=== PATIENT | female | born 1985 | race African-American/Black ===

== ENCOUNTER 2017-01-29 12:13 | Outpatient (CLI) | payer MEDICAID ==
[~2017-01-29] VITALS: Ht 160 cm; Wt 79.3 kg
[2017-01-29 12:40] VITALS: Ht 160 cm; Wt 79.3 kg
[2017-01-29 12:41] VITALS: BP 151/69; PULSE 75; RESP 19
[2017-01-29] MEDS ORDERED: LACTATED RINGER'S 250 ML IV ONE (13:00)
--- NOTE | 2017-01-29 13:30 | RADRPT ---
AMENDMENT: 01/29/2017 1:55:56 PM Olga Melgar M.d There is a complete placenta previa. Findings were discussed with the patient's nurse Mando on 01/29/2017 1:55:29 PM. PROCEDURE: OB ultrasound for biophysical profile CLINICAL INDICATION: Abdominal pain TECHNIQUE: Multiple sonographic images of the pelvis were obtained. Transabdominal views of the g ravid uterus are available for review. The images were reviewed on a PACS workstation. COMPARISON: None FINDINGS: breathing movement = 2/2 tone = 2/2 motion = 2/2 MYNOR = 2/2 MYNOR = 11.8 cm Single live intrauterine with cardiac activity of 161 bpm. position is cephal ic. The placenta is posterior. IMPRESSION: 1. Single live intrauterine gestation. 2. Biophysical profile = 8/8. 3. MYNOR = 11.8 cm. RPTAT: HH .Olga Melgar MD, Date Time Electronically viewed and signed by .Olga Melgar MD, MD on 01/29/2017 13:55 .G/
--- NOTE | 2017-01-29 13:32 | RADRPT ---
AMENDMENT: 01/29/2017 1:56:18 PM Olga Melgar M.d There is a complete placenta previa. Findings were discussed with the patient's nurse Mando on 01/29/2017 1:55:29 PM. PROCEDURE: US OB. CLINICAL INDICATION: Size and dates TECHNIQUE: Multiple sonographic images of the pelvis were obtained. Transabdominal imaging only w as performed. The images were reviewed on a PACS workstation. COMPARISON: No prior studies are available for comparison. FINDINGS: There is a single live intrauterine gestation. Cardiac activity is present with 131 beats per minut e. position is cephalic. Measurements were made in order to determine age. The results are as follows: BPD = 8.83 cm HC = 32.76 cm AC = 32.28 cm FL = 6.97 cm. Estimated gestational age of approximately 36 weeks 1 day. The estimated date of delivery is 02/25/2017. The EFW = 2858 g, 81.6 %ile. The placenta is posterior. There is no evidence for an abruption or placenta previa. There are no adnexal masses. IMPRESSION: 1. Single live intrauterine gestation of approximately 36 weeks 1 day, by ultrasound criteria. 2. The estimated date of delivery is 02/25/2017. 3. The estimated weight is 2858 g, 81.6 %ile. RPTAT: HH .Olga Melgar MD, Date Time Electronically viewed and signed by .Olga Melgar MD, MD on 01/29/2017 13:56 .G/
[2017-01-29] MEDS ORDERED: TERBUTALINE 1 MG/ML INJ SC ONE (14:00)
[2017-01-29] MEDS ORDERED: TERBUTALINE 1 ML ONE (14:02)
[2017-01-29] MEDS ORDERED: LACTATED RINGER'S 1,000 ML IV SCH (14:30)
--- NOTE | 2017-01-29 16:41 | PN ---
Triage Information Date/Time Reason for visit: Uterine contractions Weeks of Gestation 34+ /Para 4/3 Diabetes: none Hypertention: none Objective Vital Signs Date Time Temp Pulse Resp B/P Pulse Ox O2 Delivery O2 Flow Rate FiO2 01/29/17 12:41 98.3 75 19 151/69 99 Room Air Heart Rate: 140's Contractions: None Results/Medications Medications Current Medications Lactated Ringer's (Lr) 1,000 ml @ 125 mls/hr Q8H IV Last administered on t 15:32; Admin Dose 125 MLS/HR; Start 01/29/17 at 14:30 Disposition: Discharge Assessment/Plan Complete previa Not casa anymore comfortable NO VB +ZFM NO CTXs NO LOF NST reassring Rashid No CTXs Pelvic Deffered BPP 12/18 --->She is discharged with precautions MOODY CONDE M.D. Jan 29, 2017 16:41
--- NOTE | 2017-01-29 16:58 | TRIAGE ---
OB Triage Datetime Report Generated by CPN: 01/29/2017 16:57 Datetime: 01/29/2017 15:00 Maternal Assessment Level of Consciousness: Fully Conscious DTR's/Clonus: DTRs 1+ Headache: Denies Blurred Vision: No Respiratory Effort: Unlabored Breath Sounds, Left: Clear and Equal Breath Sounds, Right: Clear and Equal Nausea/Vomiting: Denies RUQ Epigastric Pain: Denies Facial Edema: None Labor Evaluation Frequency: x5 Monitor Mode: External Duration (sec)2399: 30-50 Quality: Mild Pattern: Normal: <= 5 Contractions in 10 Minutes Resting Tone Rico: Relaxed Heart Rate FHR Baseline Rate: 135 Monitor Mode: External US Variability: Moderate 6-25 bpm Accelerations: 15X15 Decelerations: None Category: Category I Pain Assessment Pain Scale: 3 Pain Presence: Intermittent Pain Type: Cramping Pain Location: Back Pain Goal: 3 Pain Assessment Comments: PT STATES FEELING MUCH BETTER AND SHES STILL REFUSING TERBUTALIN AT THIS TIME. Vaginal Exam Membrane Status: Intact Datetime: 01/29/2017 14:00 Stage of : OB Triage Maternal Assessment Level of Consciousness: Fully Conscious DTR's/Clonus: DTRs 1+ Headache: Denies Breath Sounds, Left: Clear and Equal Breath Sounds, Right: Clear and Equal Nausea/Vomiting: Denies RUQ Epigastric Pain: Denies Labor Evaluation Frequency: IRREGULAR Monitor Mode: External Duration (sec)2399: 40-70 Quality: Mild Pattern: Normal: <= 5 Contractions in 10 Minutes Resting Tone Rico: Relaxed Heart Rate FHR Baseline Rate: 135 Monitor Mode: External US Variability: Moderate 6-25 bpm Accelerations: 15X15 Decelerations: None Category: Category I Pain Assessment Pain Scale: 3 Pain Presence: Intermittent Pain Type: Cramping Pain Location: Back Pain Goal: 7 Vaginal Exam Membrane Status: Intact Datetime: 01/29/2017 13:08 Stage of : OB Triage Maternal Assessment Level of Consciousness: Fully Conscious DTR's/Clonus: DTRs 1+ Headache: Denies Blurred Vision: No Respiratory Effort: Unlabored Breath Sounds, Left: Clear and Equal Breath Sounds, Right: Clear and Equal Nausea/Vomiting: Denies RUQ Epigastric Pain: Denies Facial Edema: None Labor Evaluation Frequency: IRREGULAR Monitor Mode: External Duration (sec)2399: 40-70 Quality: Mild Pattern: Normal: <= 5 Contractions in 10 Minutes Resting Tone Rico: Relaxed Heart Rate FHR Baseline Rate: 135 Monitor Mode: External US Variability: Moderate 6-25 bpm Accelerations: 15X15 Decelerations: None Category: Category I Vaginal Exam Membrane Status: Intact Datetime: 01/29/2017 12:39 Assessment Type: Triage Maternal Assessment Level of Consciousness: Fully Conscious DTR's/Clonus: DTRs 2+; No Clonus Headache: Denies Blurred Vision: No Respiratory Effort: Unlabored; Regular Rhythm; Equal Expansion Breath Sounds, Left: Clear and Equal Breath Sounds, Right: Clear and Equal Nausea/Vomiting: Denies RUQ Epigastric Pain: Denies Lower Extremities Edema: None Degree: None Upper Extremities Edema: None Degree: None Facial Edema: None Fall Risk Assessment History of Falling: (0) No Secondary Diagnosis: (0) No Ambulatory Aid: (0) Bedrest/Nurse Assist IV Therapy: (0) No Gait: (0) Normal/Bedrest/Immobile Mental Status: (0) Oriented to Own Ability Fall Score: 0 Fall Risk Score Definition: No Risk: No action required Datetime: 01/29/2017 12:34 Contraction Comments: TOCO CHANGED Datetime: 01/29/2017 12:18 EGA: 34.6 Datetime: 01/29/2017 12:10 Time of Arrival: 01/29/2017 12:10 Arrived By: Ambulance Arrived From: Home Chief Complaint: PT CAME IN C/O BACK PAIN AND ABD PAIN X 1 AND DENIES ANY BLEEDING AT THIS TIME, S TATES FEELING BABY MOVING AT THIS TIME Movement: Present Contractions: Denies/Absent Rupture of Membranes: Denies Vaginal Discharge: Denies Recent Sexual Intercouse: Denies Abdominal Trauma: Not Applicable Patient Complaints: Cramping; Back Pain Additional Patient Complaints: NONE Time Provider Notified: 01/29/2017 12:30 Provider Notified: AMAYA Initial Plan: MONITOR, PLACENTA LOCATION, IV FLUIDS, EFW
== END 2017-01-29 16:44 | disposition home or self-care (01) ==
LOC: OBT 12:13 → L-D 12:17 → OBT 16:44
PROVIDERS: ATTEND Obstetrics & Gynecology
DX: O26.893 Other specified pregnancy related conditions, third trimester (principal); Z3A.34 34 weeks gestation of pregnancy; R10.9 Unspecified abdominal pain
CPT/HCPCS: 36415; 76815; 76818; 96360; 96361; G0463; J3105; J7120

== ENCOUNTER 2017-02-15 05:43 | Inpatient (IN) | payer MEDICAID ==
[2017-02-13 10:24] LABS: BASOPHILS % 0.2 % (0.0-2.0); EOSINOPHILS % 0.4 % (0.0-7.0); HEMATOCRIT 27.7 % (37.0-47.0); HEMOGLOBIN 8.7 g/dl (12.0-16.0); LYMPHOCYTES # 1.7 10^3/ul (0.8-2.9); LYMPHOCYTES % 17.5 % (15.0-51.0); MEAN CORPUSCULAR HEMOGLOBIN 25.7 pg (29.0-33.0); MEAN CORPUSCULAR HGB CONC 31.4 g/dl (32.0-37.0); MEAN CORPUSCULAR VOLUME 81.7 fl (82.0-101.0); MONOCYTE # 0.8 10^3/ul (0.3-0.9); MONOCYTES % 8.5 % (0.0-11.0); NEUTROPHIL # 6.9 10^3/ul (1.6-7.5); NEUTROPHILS % 72.2 % (39.0-77.0); NUCLEATED RED BLOOD CELLS% 0.2 /100WBC (0.0-0.0); PLATELET COUNT 165 10^3/UL (140-415); RED BLOOD COUNT 3.39 10^6/ul (4.20-5.40); RED CELL DISTRIBUTION WIDTH 14.4 % (11.5-14.5); WHITE BLOOD COUNT 9.5 10^3/ul (4.8-10.8)
[2017-02-13 10:32] LABS: ADD UMIC YES; UR ASCORBIC ACID NEGATIVE (NEGATIVE); UR BILIRUBIN (Dip) NEGATIVE (NEGATIVE); UR BLOOD (Dip) NEGATIVE (NEGATIVE); UR CLARITY SLIGHTLY CLOUDY (CLEAR); UR COLOR YELLOW (YELLOW); UR GLUCOSE (Dip) NEGATIVE (NEGATIVE); UR KETONES (Dip) NEGATIVE (NEGATIVE); UR LEUKOCYTE ESTERASE (Dip) 2+ Leu/ul (NEGATIVE); UR NITRITE (Dip) NEGATIVE (NEGATIVE); UR RBC 1 /HPF (0-5); UR SPECIFIC GRAVITY (Dip) 1.012 (1.003-1.030); UR SQUAMOUS EPITHELIAL CELL FEW /HPF (FEW); UR TOTAL PROTEIN (Dip) NEGATIVE (NEGATIVE); UR UROBILINOGEN (Dip) 2+ mg/dL (NEGATIVE)
[2017-02-13 10:39] LABS: INR 0.99; PROTIME 13.1 Sec (12.2-14.2)
[2017-02-13 10:47] LABS: ALBUMIN 3.8 g/dl (3.3-4.9); ALBUMIN/GLOBULIN RATIO 1.05; BILIRUBIN,INDIRECT 0.7 mg/dl (0-1.1); BILIRUBIN,TOTAL 0.7 mg/dl (0.2-1.3); CALCIUM 9.2 mg/dl (8.4-10.2); CREATININE 0.71 mg/dl (0.44-1.00); POTASSIUM 3.9 mmol/L (3.5-5.1); TOTAL PROTEIN 7.4 g/dl (6.1-8.1)
--- NOTE | 2017-02-14 22:41 | PREOPHP ---
DATE OF ADMISSION: 02/15/2017 The patient is to be admitted to labor and delivery tomorrow, 02/15/2017 for a section for placenta previa and a tubal ligation for multiparity. HISTORY OF PRESENT ILLNESS: This is a 31-year-old female, 4, para 3, whose EDC confirmed by ultrasound by early and serial studies by the [facility] group. Would have been 03/06/2017. She was found to have a placenta previa and was counseled to have this delivery by section at 37 weeks gestation which will be on the day of admission. She had been followed by Dr. Lex Noriega in of the [facility] group. The patient also has requested sterilization at the time of section. Signed the appropriate surgical informed consent. Both procedures were explained to the p atient in detail at the office. The alternatives, benefits, risks, and possible complications as we ll as 1% failure rate of the tubal ligation. She was allowed to ask questions and all her questions were answered to her satisfaction and she signed the appropriate surgical informed consents. PAST MEDICAL HISTORY: The patient denies any medical problems including diabetes, hypertension, shant al disease, liver disease, thyroid disease, and neurological problems. ALLERGIES: SHE HAS NO KNOWN ALLERGIES. MEDICATIONS: Has been using only vitamins during her care. REVIEW OF SYSTEMS: A 12-point review of systems is noncontributory. FAMILY HISTORY: Noncontributory. PHYSICAL EXAMINATION: GENERAL: Well-developed and nourished, in no distress, alert and oriented x3. Height is 5 feet 3 i nches and weight is 174 pounds. VITAL SIGNS: Showed temperature to be 98, blood pressure 126/68, respirations 16 per minute, the pu lse is 80/minute, regular. HEENT: Within normal limits. Pupils are PERRLA. NECK: Supple. The thyroid is not palpable. There is no lymphadenopathy. BREASTS: Show no masses or lumps. LUNGS: Clear to percussion and auscultation. HEART: Normal sinus rhythm without a murmur. ABDOMEN: Soft. Uterus enlarged up to 34 cm above the pubic bone, single baby, longitudinal lie, ce phalic presentation with a heart rate of category 1. PELVIC: Deferred. EXTREMITIES: Examination of lower extremities within normal limits. NEUROLOGIC: Also normal. IMPRESSION: 1. At 37 weeks gestation. 2. Placenta previa. The patient desires sterilization. PLAN: She is to be admitted and delivered by tomorrow, 02/15/2017. Dictated By: EVELYN PÉREZ/AYAZ Conf#: [id number] DID#: [id number]
[~2017-02-15] VITALS: Ht 160 cm; Wt 76.3 kg
[2017-02-15 05:58] VITALS: BP 116/74; PULSE 81; RESP 18
[2017-02-15 06:00] VITALS: Ht 160 cm; Wt 76.3 kg
[2017-02-15] MEDS ORDERED: LACTATED RINGER'S 1,000 ML IV SCH (06:42)
[2017-02-15 06:56] LABS: BASOPHILS % 0.2 % (0.0-2.0); EOSINOPHILS # 0.1 10^3/ul (0.0-0.5); EOSINOPHILS % 0.7 % (0.0-7.0); HEMATOCRIT 28.1 % (37.0-47.0); HEMOGLOBIN 8.8 g/dl (12.0-16.0); LYMPHOCYTES # 1.8 10^3/ul (0.8-2.9); LYMPHOCYTES % 20.6 % (15.0-51.0); MEAN CORPUSCULAR HEMOGLOBIN 25.3 pg (29.0-33.0); MEAN CORPUSCULAR HGB CONC 31.3 g/dl (32.0-37.0); MEAN CORPUSCULAR VOLUME 80.7 fl (82.0-101.0); MEAN PLATELET VOLUME 11.6 fl (7.4-10.4); MONOCYTES % 11.7 % (0.0-11.0); NEUTROPHIL # 5.8 10^3/ul (1.6-7.5); NEUTROPHILS % 65.9 % (39.0-77.0); PLATELET COUNT 153 10^3/UL (140-415); RED BLOOD COUNT 3.48 10^6/ul (4.20-5.40); RED CELL DISTRIBUTION WIDTH 14.7 % (11.5-14.5); WHITE BLOOD COUNT 8.8 10^3/ul (4.8-10.8)
[2017-02-15] MEDS ORDERED: METHYLERGONOVINE 0.2 MG INJ IM PRN ×2 (07:00→09:00)
[2017-02-15] MEDS ORDERED: CEFAZOLIN 2 GM/50 ML (PMX) 50 ML IV SCH (07:00)
[2017-02-15] MEDS ORDERED: OXYTOCIN 30 UNITS/LR 500 ML IV SCH ×2 (07:00→07:30)
[2017-02-15] MEDS ORDERED: CARBOPROST 250 MCG INJ IM PRN ×2 (07:00→09:00)
[2017-02-15] MEDS ORDERED: MISOPROSTOL 200 MCG TAB PR PRN ×2 (07:00→09:00)
[2017-02-15] MEDS ORDERED: OXYTOCIN 30 UNITS/LR 500 ML IV PRN ×2 (07:00→09:00)
[2017-02-15 07:06] LABS: INR 1.05; PROTIME 13.7 Sec (12.2-14.2); PT RATIO 1.1
[2017-02-15 07:07] LABS: PARTIAL THROMBOPLASTIN TIME 28.3 Sec (25.0-35.0)
[2017-02-15] MEDS ORDERED: morphine SULFATE/PF (10 MG/10 ML) INJ ONE (07:43)
[2017-02-15] MEDS ORDERED: FENTAnyl 50 MCG/ML VIAL ONE (07:44)
[2017-02-15] MEDS: CEFAZOLIN 2 GM/50 ML (PMX) 50 ML IV SCH ×2 (07:50→17:05)
[2017-02-15] MEDS ORDERED: PHENYLephrine (100 MCG/ML) 5ML SYG ONE (07:50)
[2017-02-15] MEDS ORDERED: DEXAMETHASONE 4 MG/ML 1 ML INJ ONE (07:51)
[2017-02-15] MEDS ORDERED: ONDANSETRON 4 MG INJ ONE (08:16)
[2017-02-15] MEDS ORDERED: morphine 2 MG INJ IV PRN ×2 (08:30→11:00)
[2017-02-15] MEDS ORDERED: morphine 4 MG/ML VIAL IV PRN ×2 (08:30→11:00)
[2017-02-15] MEDS ORDERED: ONDANSETRON 4 MG INJ IV PRN ×2 (08:30→11:00)
[2017-02-15] MEDS ORDERED: DIPHENHYDRAMINE 50 MG INJ IV PRN ×2 (08:30→11:00)
[2017-02-15] MEDS ORDERED: KETOROLAC 30 MG INJ IV PRN ×2 (08:30→11:00)
[2017-02-15] MEDS ORDERED: NALOXONE (0.4 MG/ML) INJ IV PRN ×2 (08:30→11:00)
[2017-02-15] MEDS ORDERED: ZOLPIDEM 5 MG TAB PO PRN ×2 (08:30→11:00)
[2017-02-15] MEDS: LACTATED RINGER'S 1,000 ML IV SCH ×3 (08:39→21:00)
--- NOTE | 2017-02-15 08:47 | SIPON ---
Date/Time of Note Date/Time of Note See dictation note DATE: 02/15/17 TIME: 08:44 Operative Report Preoperative Diagnosis 37weeks gestation.Placenta previa.Multiparity. Postoperative Diagnosis Same Operation/Procedure Performed Primary .BTL. Surgeon Dr. Evelyn Shaikh office manager executive assistant Dr. Jonathan MD Anesthesia: spinal Estimated blood loss: other Transfusion Required none Specimen Portion of fallopian tubes. Grafts/Implants none Complications none EVELYN SHAIKH MD Feb 15, 2017 08:47
[2017-02-15] MEDS: SENNA/DOCUSATE NA (8.6MG/50MG) TAB PO SCH ×2 (09:00→20:59)
[2017-02-15] MEDS ORDERED: OXYCODONE/ACETAMINOPHEN (5/325) TAB PO PRN (09:00)
[2017-02-15] MEDS ORDERED: LANOLIN 7 GM TUBE TOP PRN (09:00)
[2017-02-15] MEDS ORDERED: KETOROLAC 30 MG INJ ONE (09:06)
[2017-02-15] MEDS ORDERED: KETOROLAC 30 MG INJ IV STA (09:21)
[2017-02-15] MEDS ORDERED: DIPHENHYDRAMINE 50 MG INJ ONE (10:45)
[2017-02-15] MEDS ORDERED: DIPHENHYDRAMINE 50 MG INJ IV ONE (10:51)
[2017-02-15 12:00] VITALS: BP 134/80; PULSE 69; RESP 18
[2017-02-15] MEDS ORDERED: IBUPROFEN 800 MG TAB PO SCH (14:00)
--- NOTE | 2017-02-15 14:28 | OPR ---
DATE OF OPERATION: PREOPERATIVE DIAGNOSES: 1. 37 weeks gestation. 2. Placenta previa 3. Multiparity. POSTOPERATIVE DIAGNOSES: 1. 37 weeks gestation. 2. Placenta previa 3. Multiparity. OPERATION PERFORMED: Primary low segment transverse section, baby was in double footling breech and bilateral tubal ligation. COMPLICATIONS: None. ESTIMATED BLOOD LOSS: 600 mL. SURGEON: Evelyn Shaikh MD. PARTY HOST/HOSTESS: ANESTHESIA: Spinal. ANESTHESIOLOGIST: Dr. Larson. SPECIMENS: Portions of fallopian tubes were sent to pathology. PROCEDURE AND FINDINGS: With the patient under spinal anesthesia, she was laid on the table in the dorsal recumbent position, tilted to the left side. She had a Lemus catheter draining her bladder. Her abdomen, upper thighs and perineum were prepped with ChloraPrep and after 3 minutes draped in the usual sterile fashion for this procedure. A Pfannenstiel incision was done and carried through all layers of abdominal wall with ease. Once in the abdomen, the uterine segment was opened transversely high and a living male child was delivered from double footling breech. Amniotic fluid was clear. The baby was handed to respiratory team cotton expert who found him to have scores 8 and 9. Sample cord blood was obtained. The placenta was removed. The uterine cavity cleaned with a clean moist laparotomy pad. Incision in the uterus was closed with a continuous running stitch of 0 PDS. Good hemostasis was observed. The tubes and ovaries were found to be normal. Then, we proceeded with tubal ligation was started on the left side, picking the tube in its midportion with a [place] clamp and tying it on its base twice with 0 plain catgut. The portion of tube was cut and sent to pathology. Same was done on the contralateral side. The first count of sponges was correct at this point. The pelvis was performed washed with warm saline and was suctioned out. Then, the abdomen was closed in layers starting with the peritoneum with continuous stitch of double 0 chromic catgut. The fascia was closed with 2 convergent running sutures of 0 Vicryl. Finally, the edges of skin were brought together with absorbable geoff. Sterile pressure dressing was applied and the patient was taken to recovery room with all vital signs stable. There were no complications. Needle, sponge and instrument count at the end of the procedure was correct twice. Dictated By: EVELYN PÉREZ/AYAZ Conf#: [id number] [facility]#: [id number] CC: MOODY CONDE MD;*EndCC* MTDD
[2017-02-15 16:30] VITALS: BP 120/63; PULSE 80; RESP 18
[2017-02-15 20:00] VITALS: BP 124/63; PULSE 72; RESP 18
[2017-02-16] VITALS: BP 124/66; PULSE 73; RESP 17
[2017-02-16] MEDS: CEFAZOLIN 2 GM/50 ML (PMX) 50 ML IV SCH (01:54)
[2017-02-16 04:00] VITALS: BP 126/73; PULSE 69; RESP 18
[2017-02-16] MEDS: IBUPROFEN 800 MG TAB PO SCH ×3 (05:53→21:51)
[2017-02-16] MEDS ORDERED: CEFAZOLIN 2 GM/50 ML (PMX) 50 ML IVPB ONE (06:21)
[2017-02-16] MEDS: LACTATED RINGER'S 1,000 ML IV SCH ×2 (06:29→16:39)
[2017-02-16 07:09] LABS: ABNORMAL IP MESSAGE 1; BASOPHILS % 0.1 % (0.0-2.0); EOSINOPHILS % 0.2 % (0.0-7.0); HEMATOCRIT 24.2 % (37.0-47.0); HEMOGLOBIN 7.4 g/dl (12.0-16.0); LYMPHOCYTES # 2.6 10^3/ul (0.8-2.9); LYMPHOCYTES % 19.3 % (15.0-51.0); MEAN CORPUSCULAR HEMOGLOBIN 24.4 pg (29.0-33.0); MEAN CORPUSCULAR HGB CONC 30.6 g/dl (32.0-37.0); MEAN CORPUSCULAR VOLUME 79.9 fl (82.0-101.0); MEAN PLATELET VOLUME 11.7 fl (7.4-10.4); MONOCYTE # 1.5 10^3/ul (0.3-0.9); MONOCYTES % 11.5 % (0.0-11.0); NEUTROPHIL # 9.1 10^3/ul (1.6-7.5); NEUTROPHILS % 68.2 % (39.0-77.0); NUCLEATED RED BLOOD CELLS% 0.1 /100WBC (0.0-0.0); PLATELET COUNT 158 10^3/UL (140-415); RED BLOOD COUNT 3.03 10^6/ul (4.20-5.40); RED CELL DISTRIBUTION WIDTH 14.8 % (11.5-14.5); WHITE BLOOD COUNT 13.4 10^3/ul (4.8-10.8)
[2017-02-16 07:12] LABS: POSITIVE DIFF @See below
--- NOTE | 2017-02-16 07:31 | PN ---
Date/Time of Note Date/Time of Note DATE: 02/16/17 TIME: 07:28 OB Subjective Subjective Subjective passing flatus luke + OB Objective Objective Objective vss afebrile abdomen soft wound dry lochia min calf neg OB Assessment/Plan Other Assessment: stable post c/s anemia Other plan: iron SAMARIA JEFFERY MD Feb 16, 2017 07:30
[2017-02-16 08:15] VITALS: BP 127/81; PULSE 63; RESP 19
[2017-02-16] MEDS: OXYCODONE/ACETAMINOPHEN (5/325) TAB PO PRN ×2 (08:56→17:17)
[2017-02-16] MEDS: SENNA/DOCUSATE NA (8.6MG/50MG) TAB PO SCH ×2 (08:57→21:51)
[2017-02-16] MEDS: FERROUS GLUCONATE (EC) 325 MG TAB PO SCH ×2 (09:00→21:51)
[2017-02-16 11:26] LABS: RUBELLA ANTIBODY - IGG 3.49 index
[2017-02-16 16:00] VITALS: BP 128/76; RESP 20
[2017-02-16 20:20] VITALS: BP 128/70; PULSE 77; RESP 18
[2017-02-17] MEDS: OXYCODONE/ACETAMINOPHEN (5/325) TAB PO PRN ×3 (03:58→20:03)
[2017-02-17 04:00] VITALS: BP 129/75; PULSE 72; RESP 18
[2017-02-17] MEDS: IBUPROFEN 800 MG TAB PO SCH ×3 (05:43→21:34)
[2017-02-17 08:10] VITALS: BP 132/66; PULSE 82; RESP 18
[2017-02-17] MEDS: FERROUS GLUCONATE (EC) 325 MG TAB PO SCH ×2 (09:19→21:34)
[2017-02-17] MEDS: SENNA/DOCUSATE NA (8.6MG/50MG) TAB PO SCH ×2 (09:19→21:34)
--- NOTE | 2017-02-17 11:16 | PN ---
Date/Time of Note Date/Time of Note DATE: 02/17/17 TIME: 11:14 OB Subjective Subjective Subjective passing flatus but no B.M OB Objective Objective Objective vss afebrile abdomen soft wound dry lochia min calf neg OB Assessment/Plan Other Assessment: S/P c/s#2 satif Other plan: d/s home in am SAMARIA JEFFERY MD Feb 17, 2017 11:16
[2017-02-17 17:09] VITALS: BP 123/72; PULSE 59; RESP 18
[2017-02-17 20:03] VITALS: BP 139/65; PULSE 61; RESP 18
[2017-02-18] MEDS: OXYCODONE/ACETAMINOPHEN (5/325) TAB PO PRN ×3 (00:05→15:04)
[2017-02-18 04:20] VITALS: BP 134/76; RESP 18
[2017-02-18] MEDS: IBUPROFEN 800 MG TAB PO SCH ×2 (05:39→13:30)
[2017-02-18 07:48] VITALS: BP 134/74; PULSE 62; RESP 18
--- NOTE | 2017-02-18 08:59 | PD.PPDC ---
[employer] Discharge Instruction Diagnosis Final Diagnosis: Previous .Multiparity. Condition Patient Condition: Good Diet Diet: Resume Regular Diet Activity/Restrictions Activity: Normal Activity May Shower Restrictions: No Exercising Minimize Stair-climbing No Sexual Activity No [place] No Tampons, douche Wound/Drain Care Instructions Wound/Drain Care Instructions: Remove Steri Strips in 1 week Keep clean and dry Follow-up Follow-up with Physician: 1, Week/Weeks Return to clinic for CORNER BEAD OPERATOR Instructions: Fever greater than 101 Worsening abdominal pain Excessive Vaginal Bleeding Unable to tolerate diet OB Instructions: Breast Tenderness Depression Surgical Instructions: Incisional Drainage Incisional Redness (Shower and wash hiar as usual) EVELYN CADENA MD Feb 18, 2017 08:59
[2017-02-18] MEDS ORDERED: DIPHTH/TET/ACEL PERTUSS (ADULT) 0.5 ML VIAL IM* ONE (09:00)
[2017-02-18] MEDS: SENNA/DOCUSATE NA (8.6MG/50MG) TAB PO SCH (09:11)
[2017-02-18] MEDS: FERROUS GLUCONATE (EC) 325 MG TAB PO SCH (09:11)
--- NOTE | 2017-02-18 16:06 | DS ---
DATE OF ADMISSION: 02/15/2017 DATE OF DISCHARGE: 02/18/2017 FINAL DIAGNOSES 1. Term intrauterine . 2. Primary section. 3. Placenta previa. 4. Multiparity. 5. Delivery of baby boy who had scores of 8 and 9. SUMMARY: This is a 31-year-old female, 4, para 3, who has been found to have a placenta pre via by the [facility] group. A delivery was recommended at 37 weeks gestation. She was electivel y brought in at 37 weeks for section. She has requested sterilization at the same time and signed the appropriate consents. She underwent a low segment transverse section with the of a baby boy and had scores of 8 and 9 and a bilateral tubal ligation. Postoperatively , both mother and baby have done well. She is nursing well this morning. She has had a bowel movem ent yesterday. Incision is looking fine with no signs of infection. She is discharged in good cond ition on a regular diet with printed instructions. She is to see me in the office in 1 week for fol lowup. She was given a prescription for Percocet 60 tablets to use 1 or 2 every 6 hours p.r.n. pain . Dictated By: EVELYN PÉREZ/AYAZ Conf#: [id number] DID#: [id number] CC: MOODY CONDE MD;*EndCC*
== END 2017-02-18 17:11 | disposition home or self-care (01) | DRG 766 ==
LOC: L-D 05:43 → PP1 11:54
PROVIDERS: ADMIT Specialist; ATTEND Specialist
PROC: 0UB70ZZ Excision of Bilateral Fallopian Tubes, Open Approach (ICD-10-PCS; 2017-02-15)
PROC: 10D00Z1 Extraction of Products of Conception, Low, Open Approach (ICD-10-PCS; principal; 2017-02-15 07:30)
DX: O44.03 Complete placenta previa NOS or without hemorrhage, third trimester (principal); O32.8XX0 Maternal care for other malpresentation of fetus, not applicable or unspecified; Z37.0 Single live birth; Z3A.37 37 weeks gestation of pregnancy; Z30.2 Encounter for sterilization
CPT/HCPCS: 80053; 81001; 85025; 85610; 85730; 86592; 86762; 86850; 86900; 86901; 87340; 88302; 90715; 99464; J0690; J1100; J1200; J1885; J2274; J2370; J2405; J2590; J3010; J7120